=== PATIENT | female | born 1955 ===

== ENCOUNTER 2018-05-20 21:24 | Emergency (ER) | payer MEDICAID ==
[2018-05-20 21:24] VITALS: BMI 33.8
[2018-05-20 21:42] VITALS: RESP 16; TEMP 97.8
[2018-05-20 22:33] LABS: BASO % 0.5 % (0.0-2.0); EOS # 0.1 K/uL (0.0-0.7); EOS % 1.6 % (0.0-4.0); HEMOGLOBIN 12.4 g/dL (12.0-16.0); LYMPH # 1.3 K/uL (1.0-4.3); LYMPH % 18.9 % (20.0-40.0); MEAN CELL VOLUME 88.9 fl (81.0-99.0); MEAN CORPUSCULAR HEMOGLOBIN 29.1 pg (27.0-31.0); MEAN CORPUSCULAR HGB CONC 32.7 g/dL (33.0-37.0); MEAN PLATELET VOLUME 8.3 fl (7.2-11.7); MONO # 0.3 K/uL (0.0-0.8); MONO % 4.1 % (0.0-10.0); NEUT # 5.1 K/uL (1.8-7.0); NEUT % 74.9 % (50.0-75.0); RBC 4.26 Mil/uL (3.80-5.20); RED CELL DISTRIBUTION WIDTH 14.3 % (11.5-14.5); WHITE BLOOD COUNT 6.9 K/uL (4.8-10.8)
[2018-05-20 22:37] LABS: PROTHROMBIN TIME 11.3 Seconds (9.8-13.1)
[2018-05-20 22:40] LABS: PARTIAL THROMBOPLASTIN TIME 29.9 Seconds (25.6-37.1)
[2018-05-20 22:46] LABS: ALB/GLOB RATIO 1.2 (1.0-2.1); ALBUMIN 3.9 g/dL (3.5-5.0); ALT/SGPT 27 U/L (9-52); AST/SGOT 25 U/L (14-36); BLOOD UREA NITROGEN 16 mg/dl (7-17); GFR AFRICAN-AMERICAN > 60; GFR NON-AFRICAN AMERICAN > 60; LIPASE 314 U/L (23-300)
--- NOTE | 2018-05-21 00:10 | ED PDOC ---
Syncope/Near Syncope/Dizziness Time Seen by Provider: 05/20/18 21:51 Chief Complaint (Nursing): Dizziness/Lightheaded Chief Complaint (Provider): Dizziness/Lightheaded History Per: Patient History/Exam Limitations: no limitations Onset/Duration Of Symptoms: Hrs (x6) Additional Complaint(s): Patient is a 63 y/o female with history of hypertension who presents to the ED complaining of dizziness onset 6 hours ago. Patient reports that around 18:[address] her car when she felt light headed and was losing her vision. Patient states she stopped, pulled over and waited for symptoms to pass. She reports the episode last about a half hour after which she drove home. She told her daughter and then came to the ED for further evaluation. She reports an associated mild nausea. She denies vomiting, headache, focal weakness, or any other complaints; she is currently asymptomatic. Patient admits to having increased stress at home and feeling slightly anxious. PMD: Andrea Marin Past Medical History Reviewed: Historical Data, Nursing Documentation, Vital Signs Vital Signs: Last Vital Signs Temp 97.8 F 05/20/18 21:37 Pulse 74 05/20/18 21:37 Resp 16 05/20/18 21:37 BP 143/82 05/20/18 21:37 Pulse Ox 97 05/20/18 21:37 - Medical History PMH: HTN - Surgical History Surgical History: No Surg Hx - Family History Family History: States: Hypertension - Social History Current smoker - smoking cessation education provided: No Alcohol: None Drugs: Denies - Home Medications Home Medications: Ambulatory Orders Medication Instructions Recorded Omeprazole 40 mg PO DAILY 06/18/16 - Allergies Allergies/Adverse Reactions: Allergies Allergy/AdvReac Type Severity Reaction Status Date / Time ciprofloxacin [From Cipro] Allergy ANAPHYLAXIS Verified 05/20/18 21:36 Review of Systems ROS Statement: Except As Marked, All Systems Reviewed And Found Negative (as per HPI otherwise negative) Constitutional: Negative for: Fever Eyes: Positive for: Vision Change Cardiovascular: Positive for: Light Headedness Gastrointestinal: Positive for: Nausea. Negative for: Vomiting Neurological: Negative for: Weakness, Headache Psych: Positive for: Anxiety Physical Exam - Reviewed Nursing Documentation Reviewed: Yes Vital Signs Reviewed: Yes - Physical Exam Appears: Positive for: Well, Non-toxic, No Acute Distress Head Exam: Positive for: ATRAUMATIC, NORMOCEPHALIC Skin: Positive for: Warm, Dry Eye Exam: Positive for: EOMI, PERRL ENT: Negative for: Pharyngeal Erythema, Tonsillar Exudate Neck: Positive for: Painless ROM, Supple Cardiovascular/Chest: Positive for: Regular Rate, Rhythm, Chest Non Tender. Negative for: Murmur Respiratory: Positive for: Normal Breath Sounds. Negative for: Wheezing, Respiratory Distress Gastrointestinal/Abdominal: Positive for: Soft. Negative for: Tenderness Back: Positive for: Normal Inspection. Negative for: Decreased ROM Extremity: Positive for: Normal ROM. 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), Oriented (x3), Motor /Sensory Deficits, Mood/Affect (anxious) - Laboratory Results Result Diagrams: 05/20/18 22:33 05/20/18 22:33 - ECG ECG Rhythm: Positive for: Normal QRS, Normal ST Segment, Sinus Rhythm Rate: 64 O2 Sat by Pulse Oximetry: 97 (RA) Pulse Ox Interpretation: Normal Medical Decision Making Medical Decision Making: Time: 22:04 Initial Impression: Transient dizziness Differential included but not limited to electrolyte abnormality, anemia, anxiety Initial Plan: --type and screen --CT - head w/o contrast --EKG --CMP --Lact Acid --Lipase --Magnesium --Phosphorus --Thyroid stimulating hormone --Troponin I --PTT --Prothrombin time --Urinalysis Time: 00:06 CT Head w/o IV contrast EXAM: CT Head Without Intravenous Contrast EXAM DATE/TIME: 05/20/2018 10:04 PM CLINICAL HISTORY: 63 years old, female; Signs and symptoms; Dizziness; Additional info: Blurry vision dizziness TECHNIQUE: Axial computed tomography images of the head/brain without intravenous contrast. All CT scans at this facility use at least one of these dose optimization techniques: automated exposure control; mA and/or kV adjustment per patient size (includes targeted exams where dose is matched to clinical indication); or iterative reconstruction. Coronal and sagittal reformatted images were created and reviewed. COMPARISON: No relevant prior studies available. FINDINGS: Brain: Minimal atrophy. No intracranial hemorrhage. No mass. No definite edema. Ventricles: No hydrocephalus. Bones/joints: No acute fracture. Sinuses: Complete opacification of RIGHT frontal sinus. Partial opacification of anterior RIGHT ethmoid sinus. Mastoid air cells: No significant effusion. Orbits: Unremarkable as visualized. Soft tissues: Unremarkable. Vasculature: Mild atherosclerotic disease of intracranial arteries. IMPRESSION: 1. No definite acute intracranial abnormality. 2. Sinus disease. Thank you for allowing us to participate in the care of your patient. Dictated and Authenticated by: El Ramos MD 05/21/2018 12:06 AM Eastern Time ([place] & [place]) Time:00:10 Labs are unremarkable. Scribe Attestation: Documented by Lester Kirby, acting as a scribe for Ashley Hillman MD. Provider Scribe Attestation: All medical record entries made by the Scribe were at my direction and personally dictated by me. I have reviewed the chart and agree that the record accurately reflects my personal performance of the history, physical exam, medical decision making, and the department course for this patient. I have also personally directed, reviewed, and agree with the discharge instructions and disposition. Disposition - Clinical Impression Clinical Impression: Dizzy spells Counseled Patient/Family Regarding: Studies Performed, Diagnosis, Need For Followup, Rx Given - Disposition Referrals: Valerie Dior MD [Family Provider] - (FOLLOW UP WITH DR DIOR TOMORROW FOR REEVALUATION) Disposition: Routine/Home Disposition Time: 00:00 Condition: IMPROVED Additional Instructions: AVOID DRIVING FOR THE NEXT 24 HOURS FOLLOW UP WITH DR DIOR Instructions: Dizziness, Nonvertigo, (DC), Stress Forms: [employer] (Green[place]ic), [facility] ED School/Work Excuse Print Language: ARMENIAN
[2018-05-21 00:22] VITALS: BP 158/78
--- NOTE | 2018-05-21 07:20 | CARD ---
APPROVED REPORT Date of service: 05/20/2018 <Conclusion> Normal sinus rhythm Normal ECG
--- NOTE | 2018-05-21 11:15 | CT ---
Date of service: 05/20/2018 PROCEDURE: CT HEAD WITHOUT CONTRAST. HISTORY: blurry vision dizziness COMPARISON: None available. TECHNIQUE: Axial computed tomography images were obtained through the head/brain without intravenous contrast. Radiation dose: Total exam DLP = 782.29 mGy-cm. This CT exam was performed using one or more of the following dose reduction techniques: Automated exposure control, adjustment of the mA and/or kV according to patient size, and/or use of iterative reconstruction technique. FINDINGS: HEMORRHAGE: No intracranial hemorrhage. BRAIN: Normal garcia-white matter differentiation and density are appreciated throughout the cerebrum and cerebellum with the brainstem appearing unremarkable as well. There is no mass effect. There is no suspicious extra-axial fluid collection and the midline brain anatomy appears diffusely unremarkable. VENTRICLES: Unremarkable. No hydrocephalus. CALVARIUM: Unremarkable. PARANASAL SINUSES: Unremarkable as visualized. No significant inflammatory changes. MASTOID AIR CELLS: Unremarkable as visualized. No inflammatory changes. OTHER FINDINGS: None. IMPRESSION: Normal CT of the Head. Follow-up CT or MRI are available, given clinical history, if clinically warranted. Concordant preliminary report from [facility], 05/21/2018.
[2018-05-21 17:02] VITALS: PULSE 64; O2SAT 97
== END 2018-05-21 00:21 | disposition home or self-care (01) ==
LOC: H.ER 21:24
DX: R42 Dizziness and giddiness (principal); I10 Essential (primary) hypertension